=== PATIENT | female | born 1980 | race Caucasian/White ===

== ENCOUNTER → 2024-09-21 | Outpatient (CLI) | payer OTHER ==
[~2024-09-21] MED LIST: ALBU90OI INH; AMIT50 PO; ARIP10 PO; ATOR80 PO; DULO60 PO; GABA600 PO; INSULANPEN SC; MONT10T PO; Novolog Fl100 UNIT/1 SQ; Tapazole10 MG
[2024-09-28 03:24] LABS: HPV HIGH RISK BY TMA Not Detected; HPV SOURCE Vaginal
== END | disposition home or self-care (01) ==
LOC: LAB SHORT 12:00 → LAB 12:00
PROVIDERS: Family Medicine
DX: Z01.419 Encounter for gynecological examination (general) (routine) without abnormal findings (principal)
CPT/HCPCS: 87624; G0123

== ENCOUNTER → 2024-12-19 | Outpatient (CLI) | payer OTHER | LOC: LAB SHORT 15:34 → LAB 15:34 | DX: E11.9 Type 2 diabetes mellitus without complications (principal) | CPT/HCPCS: 82043 ==